=== PATIENT | male | born 1965 ===

== ENCOUNTER 2017-06-28 18:35 | Emergency (ER) | payer OTHER ==
[~2017-06-28] VITALS: Ht 182.9 cm; Wt 104.3 kg
[2017-06-28] MEDS ORDERED: AMLODIPINE BESY10 MG (18:59)
[2017-06-28] MEDS ORDERED: LEVOTHYROXINE25 MCG (18:59)
[2017-06-28] MEDS ORDERED: PNEU16DI2 (18:59)
== END 2017-06-28 21:21 ==
LOC: ER 18:35
DX: J11.1 Influenza due to unidentified influenza virus with other respiratory manifestations (principal)